=== PATIENT | male | born 1995 | race Caucasian/White ===

== ENCOUNTER 2016-12-29 15:05 | Emergency (ER) | payer OTHER ==
[~2016-12-29] VITALS: Ht 175.3 cm; Wt 74.8 kg
--- NOTE | ~2016-12-29 | EKG ---
[address] [place] [address] ELECTROCARDIOGRAM REPORT Name: HEYDI KHALIL Room #: DEP SULMA Cueto#: [id number] Admission: 12/29/16 Attend Phys: Discharge: 12/29/16 Date of : [birth year] Report #: [id number] THIS REPORT FOR: //name// [facility] ED Test Date: 2016-12-29 Test Time: 15:12:01 Pat Name: HEYDI KHALIL Department: Room: Gender: Program Research Specialist: Nate BLEDSOE : 1995 Requested By: Emigdio Pop Order Number: [id number] MD: Be Sosa Measurements Intervals [place] Rate: 70 P: 35 GA: 185 QRS: 41 QRSD: 87 T: 19 QT: 374 QTc: 404 Interpretive Statements Sinus rhythm No significant abnormality No previous ECG available for comparison Electronically Signed On 12-31-2016 7:38:42 CDT by Be Sosa [email or web address] <ELECTRONICALLY SIGNED> By: Be Sosa MD, [facility] 12/31/16 0738 1512 1512 Be oSsa MD, FACC /EPI
[2016-12-29 15:59] LABS: CALCIUM 8.4 mg/dL (8.5-10.1); POTASSIUM 3.9 mmol/L (3.5-5.1)
[2016-12-29 17:31] VITALS: BP 100/60
== END 2016-12-29 17:33 | disposition home or self-care (01) ==
LOC: ER 15:05
PROVIDERS: Emergency Medicine
DX: E86.0 Dehydration (principal); B34.9 Viral infection, unspecified; Z88.2 Allergy status to sulfonamides

== ENCOUNTER 2016-12-29 17:39 | Inpatient (IN) | payer OTHER ==
[2016-12-29] VITALS (7 sets, daily range): BP systolic 95–116; BP diastolic 47–66
[~2016-12-29] VITALS: Ht 175.3 cm; Wt 78.9 kg
--- NOTE | ~2016-12-29 | S ---
[facility] [place] [address] SURGICAL PATH RPT PROCEDURE Name: HEYDI KHALIL Room #: 310-P ADM IN M.R.#: [id number] Admission: 12/30/16 Date of : [birth year] Discharge: Report #: [id number] Path Case #: [id number] PATHOLOGY REPORT COLLECTION DATE: 12/30/2016 RECEIVED DATE: 12/30/2016 SUBMITTING PHYS: Dr. Norman Pichardo OTHER PHYS: Dr. Deuce Ram SPECIMEN(S) RECEIVED: A.Peripheral smear * * * * * * * * * * * * FINAL DIAGNOSIS: Peripheral blood smear: - Mild normocytic anemia and mild lymphopenia. (See comment) COMMENT: Overall the peripheral blood has mild normocytic anemia and mild lymphopenia. The WBC and platelet counts are within the normal reference ranges. The etiology of the findings is unclear based entirely on slide review. Potential causes of normocytic anemia include anemia of chronic disease, treated and/or compensated vitamin and mineral deficiency, acute blood loss and dilution. The absolute lymphocyte count is only very mildly decreased. Correlation with clinical history and additional laboratory data is recommended. (CLW:rubio; d/t: 12/30/2016) PATHOLOGIST: Nae Small M.D. REPORT ELECTRONICALLY SIGNED BY: Nae Small M.D. DATE/TIME: 12/31/2016 09:32 * * * * * * * * * * * * MICROSCOPIC DESCRIPTION: CBC DATA (12/30/16): WBC: 4,700/uL; RBC: 4.16; Hgb: 12.5 g/dL; Hct: 35.3%; MCV: 85.0 fL; MCH: 30.1 pg; MCHC: 35.4 g/dL, RDW: 12.6%; platelets: 154,000 /uL. Automated white blood cell differential: segs 73.9%, lymphs 15.9%, monos 9.6%, eos 0.2%, baso 0.4%. Peripheral blood smear: Cytomorphological examination of the Caruso's-stained peripheral blood smear confirms the provided data. Red blood cels show mild normocytic anemia with no significant anisopoikilocytosis. White blood cells are predominantly segmented neutrophils and are without significant dyspoiesis or significant left shift. Lymphocytes are predominantly small, round and mature-appearing with condensed chromatin and scant cytoplasm with admixed large granular [address] [address] SURGICAL PATH RPT PROCEDURE Name: SIMRANHEYDI Room #: 310-P ADM IN .R.#: [id number] Admission: 12/30/16 Date of : [birth year] Discharge: Report #: [id number] Path Case #: [id number] lymphocytes. On scanning, no markedly atypical lymphoid cells are seen. Monocytes are mature. Platelets are adequate in number and mainly normal in morphology with rare larger platelets noted. GROSS PATHOLOGY: A peripheral smear is submitted for review. CLINICAL HISTORY: 21-year-old man with recent febrile illness and near syncopal episode. Morphologic review of the peripheral blood smear is requested by the patient's physician. INITIAL CPT CODE(S): A; [place] Professional services performed by [facility] at [facility] [address], [place] [address] Technical services performed by [facility] at [address] [place] [address], [address], [place] [address]. [facility] [address] [place] [address] PHONE: [phone] DIRECTOR: Yinka Gates M.D. * * * END OF REPORT * * *
--- NOTE | ~2016-12-29 | HC ---
[facility] [place] [address] CONSULTATION Name: HEYDI KHALIL Room #: 310-P [facility] IN M.R.#: [id number] Admission: 12/30/16 Attend Phys: Deuce Ram MD Discharge: Date of : [birth year] Report #: [id number] THIS REPORT FOR: //name// CC: OSIEL physician/PCP Deuce Ram INFECTIOUS DISEASE CONSULTATION REASON FOR CONSULTATION: I was asked to evaluate concerning fever and syncope. HISTORY OF PRESENT ILLNESS: The patient was a 21-year-old previously healthy male with a 24-hour history of fever, chills, myalgias, arthralgias and 2 episodes of presyncope. He thinks he may have had a true syncopal episode on one of the events. He started feeling ill yesterday with myalgias, arthralgias and mild nausea. He had one episode of diarrhea. After having the diarrhea stool, he became lightheaded and had some paresthesias to his extremities. He quickly lied down and thought that he may have passed out on a couch at work. He was brought into the emergency room and given IV fluids. Initial evaluation did not show much and he was going to be discharged, but upon going to walk out, he had another syncopal episode and now hospitalized. His electrocardiogram was normal. His telemetry has been normal sinus rhythm throughout the night. He still does not feel well, although his nausea and diarrhea have resolved. He has had no dysuria. He has received IV fluids. His urine output has been reasonable. He denies any travel. No sexual activity. No reported HIV risk factors. A very active gentleman, previously played multiple sports in high school and beyond. He has had several concussions. No syncopal episodes during athletic events. Nonsmoker. No travel outside the [place]. Works at a office. No reported illnesses at his work place or with his roommates. REVIEW OF SYSTEMS: No headache. He has had some sinus congestion. He has had a sore throat for several days. No rash or adenopathy. No cough or sputum production. No abdominal pain. Back has been sore along with his other myalgias. No arthritis symptoms. No seizure reports. PAST MEDICAL HISTORY: EBV as a teenager. Left ankle surgery. ALLERGIES: ALLERGIC TO SULFA, does not know the reaction. MEDICATIONS: No medications prior to his admission. SOCIAL HISTORY: Nonsmoker. No significant alcohol intake. No other details from above. PHYSICAL EXAMINATION: VITAL SIGNS: He was afebrile, hemodynamically stable. Maximum temperature was 101.3 earlier today. His O2 saturation was normal on room air. GENERAL: The patient was alert and cooperative. He was a bit weak, little [facility] [address] [place] [address] CONSULTATION Name: HEYDI KHALIL Room #: 310-P [facility] IN M.R.#: [id number] Admission: 12/30/16 Attend Phys: Deuce Ram MD Discharge: Date of : [birth year] Report #: [id number] unsteady when he got out of bed, complaining of some lightheadedness. He had an athletic build. SKIN: Unremarkable. LYMPH: Unremarkable. HEENT: Unremarkable. NECK: Supple. No adenopathy. LUNGS: Clear. HEART: Regular. ABDOMEN: Soft. No hepatosplenomegaly or mass. EXTREMITIES: Unremarkable. LABORATORY STUDIES: Sodium 140, potassium 3.5, bicarbonate 23 and creatinine 0.9. Bilirubin 2.3 total, 0.2 direct. Liver function test normal. Urine drug screen negative. Hemoglobin 12.5, white count 4.7 with 73% segs, 15% lymphs, 10% monocytes and platelet count 154,000. Urinalysis had 1+ ketones. Monospot negative. Rapid group A strep antigen negative. Influenza antigen negative. Blood cultures pending. Electrocardiogram, normal sinus rhythm. IMPRESSION: Myalgias and arthralgias with presyncope. I suspect more vagal episode considering he did not, from my estimation, truly lose consciousness. He also has had issues with vagal symptoms previous. He has elevated bilirubin, but I suspect most likely. Outside chance he has some hemolysis, considering his hemoglobin is 12.5, but I doubt this. RECOMMENDATIONS: Recommend IV fluids. Chest x-ray. Check CMV and EBV serologies. He has previously had EBV; therefore, it would not be helpful. Check peripheral blood smear and will observe off antibiotics at this point. <ELECTRONICALLY SIGNED> By: Norman Pichardo MD 12/31/16 1252 1209 1259 Norman Pichardo MD /nt
--- NOTE | ~2016-12-29 | 2DMMODE ---
[facility] [place] [address] 2 D/M-MODE ECHOCARDIOGRAM Name: SIMRANMACEYSULMA Room #: 310-P ADM IN M.R.#: [id number] Admission: 12/30/16 Attend Phys: Evie Chao Discharge: Date of : [birth year] Date of Service: 12/30/16 1245 Report #: [id number] THIS REPORT FOR: //name// APPROVED REPORT Study performed: 12/30/2016 12:04:23 EXAM: Comprehensive 2D, Doppler, and color-flow Echocardiogram Patient Location: Out-Patient Blood Pressure: 101/48 mmHg HR: 65 bpm Rhythm: NSR Other Information Study Quality: Good Indications Near sycope, dizziness 2D Dimensions RVDd: 39.27 mm LVEF(%): 52.95 (>50%) IVSd: 8.09 (7-11mm) LVOT Diam: 23.62 (18-24mm) LVDd: 49.02 mm PWd: 10.28 (7-11mm) Ascending Aorta: 27.60 mm LVDs: 35.64 (25-40mm) Aortic Root: 32.41 mm Recio's LVEF: 52.95 % Volumes Left Atrial Volume (Systole) Single Plane 4CH: 35.90 mL Single Plane 2CH: 55.37 mL LA ESV Index: 27.00 mL/m2 Aortic Valve AoV Peak Gilberto.: 1.32 m/s AO Peak Gr.: 6.94 mmHg LV Max P.08 mmHg LV Max: 1.33 m/s Mitral Valve MV PHT: 46.65 ms MV E Max Gilberto.: 1.10 m/s E/A Ratio: 2.4 MV A Gilberto.: 0.46 m/s MV Decel. Time: 160.86 ms [facility] [place] [address] 2 D/M-MODE [facility]OCARDIOGRAM [facility] Room #: 310-P ADM IN M.R.#: [id number] Admission: 12/30/16 Attend Phys: Evie Chao Discharge: Date of : [birth year] Date of Service: 12/30/16 1245 Report #: [id number] Pulmonary Valve PV Peak Gilberto.: 1.10 m/s PV Peak Gr.: 4.81 mmHg Tricuspid Valve TR Peak Gilberto.: 2.34 m/s RAP Estimate: 5.00 mmHg TR Peak Gr.: 21.87 mmHg RVSP: 27.00 mmHg Left Ventricle The left ventricle is normal size. There is normal LV segmental wall motion. There is normal left ventricular wall thickness. Left ventricular systolic function is normal. LVEF is 55-60%. The left ventricular diastolic function is normal. Right Ventricle The right ventricle is normal size. The right ventricular systolic function is normal. Atria The left atrium size is normal. The right atrium size is normal. Aortic Valve The aortic valve is normal in structure. No aortic regurgitation is present. There is no aortic valvular stenosis. Mitral Valve The mitral valve is normal in structure. Trace mitral regurgitation. Tricuspid Valve The tricuspid valve is normal in structure. There is mild tricuspid regurgitation. The right atrial pressure is estimated at 5 mmHg. Estimated PAP is 27mmHg. Pulmonic Valve The pulmonary valve is normal in structure. Mild pulmonic regurgitation. Great Vessels The aortic root is normal in size. The ascending aorta is normal in size. IVC is normal in size and collapses >50% with inspiration. Pericardium There is no pericardial effusion. [facility] [address] [place] [address] 2 D/M-MODE [facility]CHOCARDIOGRAM [facility] Room #: 310-P [facility] IN .R.#: [id number] Admission: 12/30/16 Attend Phys: Evie Chao Discharge: Date of : 89 Date of Service: 12/30/16 1245 Report #: [id number] <Conclusion> The left ventricle is normal size. LVEF is 55-60%. The aortic valve is normal in structure. The mitral valve is normal in structure. Trace mitral regurgitation. The tricuspid valve is normal in structure. There is mild tricuspid regurgitation. The right atrial pressure is estimated at 5 mmHg. Estimated PAP is 27mmHg. Mild pulmonic regurgitation. <ELECTRONICALLY SIGNED> By: Jonathon Chawla MD 12/30/16 1245 1245 1245 Jonathon Chawla MD /INF
--- NOTE | ~2016-12-29 | H ---
[facility] [place] [address] HISTORY AND PHYSICAL Name: HEYDI KHALIL Room #: 310-P ADM IN M.R.#: [id number] Admission: 12/30/16 Attend Phys: Deuce Ram MD Discharge: Date of : 89 Report #: [id number] THIS REPORT FOR: //name// CC: OSIEL physician/PCP Deuce Ram DATE OF SERVICE: 12/29/2016 CHIEF COMPLAINT: Syncope. HISTORY OF PRESENT ILLNESS: The patient is a 21-year-old male with no significant past medical history, presented to the Emergency Room complaining of near syncope. He apparently woke up feeling well this morning. He went to work. At work at around 10:00 a.m., he started feeling nauseous and went to the restroom. He did not vomit, but did have one loose watery bowel movement. Then, he started getting lightheaded and dizzy upon standing. Then he started having like a tunnel vision and rushed out of the restroom to a couch nearby where he laid down. He denies any chest pain, no palpitation. This patient complains of generalized ache. He has also had some mild sore throat. No history of any runny nose. No cough, expectoration. No history of any abdominal pain. The patient was initially evaluated in the Emergency Room, was hydrated with IV fluid. Initial lab work looked normal. The patient felt better after eating and he was discharged back home. On his way to the waiting room in the Emergency Room, he had another episode of dizziness, lightheadedness. He was subsequently brought back to the Emergency Room for evaluation. The patient is subsequently being admitted for persistent dizziness and lightheadedness. On initial arrival to the Emergency Room, his blood pressure was 110/60. His blood pressure now is 98/51. He presently complains of generalized ache. No headache, no visual disturbance. No focal numbness or weakness of the extremity. PAST MEDICAL HISTORY: No hypertension or diabetes. History of left ankle surgery. ALLERGIES: ALLERGIC TO SULFA. Please look at the nursing documentation for reaction. HOME MEDICATIONS: None. SOCIAL HISTORY: No smoking, alcohol abuse or illicit drug abuse. He works as an insurance fellow. FAMILY HISTORY: Noncontributory. The patient denies any recent travel or any [facility] [address] [place] [address] HISTORY AND PHYSICAL [facility] Room #: 310-P [facility] IN M.R.#: [id number] Admission: 12/30/16 Attend Phys: Deuce Ram MD Discharge: Date of : [birth year] Report #: [id number] other family members or friends with similar illness. REVIEW OF SYSTEMS: CONSTITUTIONAL: No recent weight loss, weight gain. No fever or chills. He complains of generalized body ache. THROAT: He complains of some mild sore throat. CARDIOVASCULAR: No chest pain. No palpitations. RESPIRATORY: No cough or expectoration. GASTROINTESTINAL: As above. GENITOURINARY: No dysuria or hematuria. NEUROLOGIC: No focal numbness or weakness of the extremities. PSYCHIATRIC: No anxiety or depression. A 12-point review of system is negative other than the positive and the negative dictated in the history of present illness and the review of system. PHYSICAL EXAMINATION: VITAL SIGNS: Blood pressure 98/51, heart rate is 78 per minute, afebrile. GENERAL: The patient is awake and alert, not in acute respiratory distress. HEENT: Eyes, pupils equal, reactive to light, nonicteric conjunctivae. Throat appears normal except for dry oral mucosa. NECK: Supple, no JVD, no bruit, no lymphadenopathy. CARDIOVASCULAR SYSTEM: S1, S2, negative S3, no murmur. CHEST: Bilateral air entry present. Clear on auscultation. ABDOMEN: Soft, bowel sounds present, no mass, no organomegaly, no tenderness. PERIPHERY: No pedal edema. No calf tenderness. Dorsalis pedis 1+. NEUROLOGICAL: No gross motor or sensory deficit. LABORATORY DATA: Reviewed. White count is 7.1, hemoglobin is 13.7, platelet is 176. Differential showed 86% segs. Chemistry showed a BUN of 16, creatinine of 1.0, blood glucose is 107. Calcium is 8.4. Urinalysis is pending. ASSESSMENT AND PLAN: 1. Near syncope, most likely vasovagal/dehydration, on orthostasis. The patient will be continued with IV hydration. We will check on orthostatic vital signs. 2. Generalized myalgia, possible viral illness. We will check on influenza and also rapid strep throat. I also ordered a CPK level. We will also check on the liver function tests and lipase. 3. Deep venous thrombosis prophylaxis. The patient will be placed on SCD on the leg for DVT prophylaxis. We will recheck his labs in the morning. Treatment plan has been explained to the patient in detail. We will consider doing further workup including a CT of [facility] [address] [place] [address] HISTORY AND PHYSICAL Name: HEYDI KHALIL Room #: 310-P ADM IN M.R.#: [id number] Admission: 12/30/16 Attend Phys: Deuce Ram MD Discharge: Date of : 89 Report #: [id number] the abdomen and pelvis if he has persistent symptoms, also further cardiac workup. He will be monitored on telemetry. <ELECTRONICALLY SIGNED> By: Deuce Ram MD 12/30/16 1310 1928 2214 Deuce Ram MD /nt
[2016-12-29 18:11] LABS: HEMATOCRIT 39.2 % (42.0-52.0); HEMOGLOBIN 13.7 gm/dL (14.0-18.0); MCH 29.7 pg (26.0-34.0); MCV 84.9 fL (80.0-100.0); PLATELET COUNT 176 thou/uL (150-400); RBC 4.62 mil/uL (4.50-6.00); RDW 12.5 % (10.5-14.5); WBC 7.1 thou/uL (4.0-11.0)
[2016-12-29 18:20] LABS: MANUAL DIFF YES
[2016-12-29 18:50] LABS: ABSOLUTE NEUTROPHILS 6.2 thou/uL (1.4-8.2); TOTAL CELL COUNT 100
[2016-12-29 19:34] LABS: URINE BILIRUBIN NEGATIVE (Negative); URINE BLOOD NEGATIVE (Negative); URINE COLOR YELLOW; URINE GLUCOSE-RANDOM* NEGATIVE (Negative); URINE KETONES 1+ (Negative); URINE LEUKOCYTES-REFLEX NEGATIVE (Negative); URINE PROTEIN (DIPSTICK) NEGATIVE (Negative); URINE UROBILINOGEN 0.2 E.U./dl (0.2-1.0)
[2016-12-29 20:25] LABS: HEMATOCRIT 38.1 % (42.0-52.0); HEMOGLOBIN 13.3 gm/dL (14.0-18.0); MCH 29.8 pg (26.0-34.0); MCHC 34.9 g/dL (28.0-37.0); MCV 85.2 fL (80.0-100.0); PLATELET COUNT 169 thou/uL (150-400); RBC 4.47 mil/uL (4.50-6.00); RDW 12.5 % (10.5-14.5); WBC 6.2 thou/uL (4.0-11.0)
[2016-12-29 20:26] LABS: MANUAL DIFF YES
[2016-12-29 20:34] LABS: CALCIUM 7.3 mg/dL (8.5-10.1); POTASSIUM 3.8 mmol/L (3.5-5.1)
[2016-12-29 20:40] LABS: ALBUMIN 3.5 g/dL (3.4-5.0); DIRECT BILIRUBIN 0.2 mg/dL (<0.1-0.3); MAGNESIUM 1.5 mg/dL (1.8-2.4); TOTAL BILIRUBIN 2.7 mg/dL (<0.1-1.0); TOTAL PROTEIN 5.6 g/dL (6.4-8.2)
[2016-12-29 20:45] LABS: ABSOLUTE NEUTROPHILS 5.5 thou/uL (1.4-8.2); TOTAL CELL COUNT 100
[2016-12-29 21:29] LABS: AMP/METHAMP Negative (Negative); BARBITURATES Negative (Negative); BENZODIAZEPINES Negative (Negative); COCAINE Negative (Negative); METHADONE Negative (Negative); OPIATES Negative (Negative); PCP Negative (Negative); THC Negative (Negative)
[2016-12-30] VITALS (7 sets, daily range): BP systolic 99–115; BP diastolic 41–76
[2016-12-30 05:38] LABS: ABSOLUTE NEUTROPHILS 3.4 thou/uL (1.4-8.2); BASOPHILS 0.4 % (0.0-2.0); EOSINOPHILS 0.2 % (0.0-3.0); HEMATOCRIT 35.3 % (42.0-52.0); HEMOGLOBIN 12.5 gm/dL (14.0-18.0); LYMPHOCYTES 15.9 % (24.0-44.0); MCH 30.1 pg (26.0-34.0); MCHC 35.4 g/dL (28.0-37.0); MONOCYTES 9.6 % (1.0-8.0); PLATELET COUNT 154 thou/uL (150-400); POLYS 73.9 % (36.0-66.0); RBC 4.16 mil/uL (4.50-6.00); RDW 12.6 % (10.5-14.5); WBC 4.7 thou/uL (4.0-11.0)
[2016-12-30 05:44] LABS: MANUAL DIFF NO
[2016-12-30 05:51] LABS: ALBUMIN 3.1 g/dL (3.4-5.0); CREATININE 0.9 mg/dL (0.7-1.3); DIRECT BILIRUBIN 0.2 mg/dL (<0.1-0.3); MAGNESIUM 1.7 mg/dL (1.8-2.4); POTASSIUM 3.5 mmol/L (3.5-5.1); TOTAL BILIRUBIN 2.3 mg/dL (<0.1-1.0); TOTAL PROTEIN 5.5 g/dL (6.4-8.2)
[2016-12-30 23:07] LABS: HIV ANTIBODY Non Reactive (Non Reactive)
[2016-12-31 03:40] VITALS: BP 110/49
[2016-12-31 08:29] VITALS: BP 106/67
[2016-12-31 10:15] VITALS: BP 121/69
[2016-12-31 10:17] VITALS: BP 118/81
[2016-12-31 10:20] VITALS: BP 114/76
[2016-12-31 20:00] VITALS: BP 122/66
[2017-01-01 03:48] LABS: ABSOLUTE NEUTROPHILS 2.8 thou/uL (1.4-8.2); BASOPHILS 0.3 % (0.0-2.0); EOSINOPHILS 1.4 % (0.0-3.0); HEMATOCRIT 36.4 % (42.0-52.0); HEMOGLOBIN 12.7 gm/dL (14.0-18.0); LYMPHOCYTES 20.7 % (24.0-44.0); MCH 29.5 pg (26.0-34.0); MCHC 34.9 g/dL (28.0-37.0); MCV 84.5 fL (80.0-100.0); MONOCYTES 15.2 % (1.0-8.0); PLATELET COUNT 147 thou/uL (150-400); POLYS 62.4 % (36.0-66.0); RDW 12.6 % (10.5-14.5); WBC 4.5 thou/uL (4.0-11.0)
[2017-01-01 03:55] LABS: MANUAL DIFF NO
[2017-01-01 04:00] VITALS: BP 115/54
[2017-01-01 04:17] LABS: ALBUMIN 3.3 g/dL (3.4-5.0); CALCIUM 8.1 mg/dL (8.5-10.1); CREATININE 0.8 mg/dL (0.7-1.3); MAGNESIUM 1.5 mg/dL (1.8-2.4); POTASSIUM 3.7 mmol/L (3.5-5.1); TOTAL BILIRUBIN 1.8 mg/dL (<0.1-1.0)
[2017-01-01 07:26] VITALS: BP 98/53
[2017-01-01 10:50] VITALS: BP 98/53
== END 2017-01-01 11:09 | disposition home or self-care (01) | DRG 312 ==
LOC: ER 17:39 → EROBS 19:11 → 3N 19:11 → 4W 12-31 18:25
PROVIDERS: Emergency Medicine; Internal Medicine; Nurse Practitioner; Specialist
DX: R55 Syncope and collapse (principal); E86.0 Dehydration; B34.9 Viral infection, unspecified; Z96.662 Presence of left artificial ankle joint; E86.1 Hypovolemia; M25.50 Pain in unspecified joint; E83.42 Hypomagnesemia; M79.1 Myalgia; Z88.2 Allergy status to sulfonamides
CPT/HCPCS: 10047; 10096